=== PATIENT | male | born 1965 | race Caucasian/White ===

== ENCOUNTER 2018-12-08 12:22 | Emergency (ER) | payer OTHER ==
[~2018-12-08] VITALS: Ht 182.2 cm; Wt 108.6 kg
[2018-12-08] MEDS ORDERED: TOPROL XL (12:30)
[2018-12-08] MEDS ORDERED: ALLOPURINOL (12:32)
--- NOTE | 2018-12-08 12:49 | ED Upper Extremity ---
General Chief Complaint: Laceration Stated Complaint: FINGER LAC Nursing Triage Note: AMB TO ED REPORTS WAS USING A LOG SPLITER AND GOT L 5TH FINGER CAUGHT BETWEEN 2 PICES OF METAL . LACERATION TO FAT PAD OF FINGER. Nursing Sepsis Screen: No Definite Risk Source: patient Exam Limitations: no limitations (JIE WHITE) History of Present Illness Date Seen by Provider: Dec 08, 2018 Time Seen by Provider: 12:40 Initial Comments Patient presents today after smashing his left pinky finger in a trailer hitch, creating a 2.5 cm laceration. He states it is very painful to move and thinks he may have fractured the finger. He does not complain of any other associated symptoms and there was minimal blood loss. Location Injury Occurred: at Work Onset: just prior to arrival Severity: moderate Pain/Injury Location: left 5th finger Method of Injury: direct blow (Smashed by a trailer hitch) Modifying Factors: Improves With Cold Therapy, Improves With Immobilization; Worse With Movement Associated Symptoms: None (JIE WHITE) Allergies and Home Medications Allergies Coded Allergies: No Known Drug Allergies (Unverified , 12/08/18) Home Medications Cephalexin 500 Mg Tablet, 500 MG PO QID Prescribed by: SUNNY GRESHAM on 12/08/18 1403 Hydrocodone/Acetaminophen 1 Each Tablet, 1 TAB PO Q6H PRN for PAIN-MODERATE Prescribed by: SUNNY GRESHAM on 12/08/18 1403 Patient Home Medication List Home Medication List Reviewed: Yes (USNNY GRESHAM APRN) Review of Systems Constitutional: no symptoms reported EENTM: no symptoms reported Respiratory: no symptoms reported Cardiovascular: no symptoms reported Gastrointestinal: no symptoms reported Genitourinary: no symptoms reported Musculoskeletal: see HPI Skin: no symptoms reported Psychiatric/Neurological: No Symptoms Reported (JIE WHITE) Past Uwqtesz-Aaaefk-Gjyqbp Hx Patient Social History Alcohol Use: Denies Use Recreational Drug Use: No Smoking Status: Never a Smoker Recent Foreign Travel: No Contact w/Someone Who Travel: No Recent Infectious Disease Expo: No (JIE WHITE) Past Medical History Surgeries: No Respiratory: No Cardiac: Yes Atrial Fibrillation Neurological: No Genitourinary: No Gastrointestinal: No Musculoskeletal: No Endocrine: No HEENT: No Cancer: No Integumentary: No (WHITE,JIE PA STUDENT) Physical Exam Vital Signs Vital Signs - First Documented 12/08/18 12:23 Temp 36.1 Pulse 78 Resp 18 B/P (MAP) 151/91 (111) Pulse Ox 99 O2 Delivery Room Air (SUNNY GRESHAM APRN) Vital Signs Capillary Refill : Less Than 3 Seconds (JIE WHITE STUDENT) Height, Weight, BMI Height: '" Weight: lbs. oz. kg; 32.00 BMI Method: General Appearance: WD/WN, no apparent distress HEENT: PERRL/EOMI (JIE WHITE STUDENT) Neck: non-tender, full range of motion Gastrointestinal: normal bowel sounds, non tender Shoulder: normal inspection, non-tender Elbow/Forearm: normal inspection, non-tender Hand: Left Neurologic/Tendon: normal sensation, normal motor functions Neurologic/Psychiatric: alert, normal mood/affect, oriented x 3 Skin: normal color, warm/dry (SUNNY GRESHAM APRN) Progress/Results/Core Measures Results/Orders My Orders Orders - SUNNY GRESHAM APRN Hand, Left, 3 Views (12/08/18 12:50) Lidocaine 1% Inj 20 Ml (Xylocaine 1% Inj (12/08/18 13:00) Hand, Left, 2 Views (12/08/18 13:55) (SUNNY GRESHAM APRN) Medications Given in ED Current Medications Medications Dose Ordered Sig/Sarah Route Start Time Stop Time Status Last Admin Dose Admin Lidocaine HCl 5 ml ONCE ONCE INJ 12/08/18 13:00 12/08/18 13:01 DC 12/08/18 12:55 5 ML (SUNNY GRESHAM APRN) Vital Signs/I&O 12/08/18 12/08/18 12:23 14:25 Temp 36.1 36.1 Pulse 78 78 Resp 18 18 B/P (MAP) 151/91 (111) 151/91 (111) Pulse Ox 99 99 O2 Delivery Room Air (SUNNY GRESHAM APRN) Blood Pressure Mean: 111 POS Departure Communication (Admissions) Fingertip laceration was done. This will block was done using 5 mL of 1% lidocaine without epinephrine. Simple interrupted sutures size 4-0 and 5-0 were placed to the volar aspect of the pad of the finger. The proximal portion of the fingernail was elevated from the nail bed due to the bony fracture angulation beneath this. The fingernail was then removed from the nailbed, the nailbed laceration at the proximal middle region of the nail bed was then sutured using 1 suture size 5-0 chromic. We then used the sterile packaging from the chromic gut made out of oil as a splint for the proximal nail fold held in place with 2 sutures size 5-0 Prolene. X-rays were then done to confirm fracture reduction, (SUNNY GRESHAM APRN) Impression Primary Impression: Open fracture of finger of left hand Qualified Codes: S62.637B - Displaced fracture of distal phalanx of left little finger, initial encounter for open fracture Disposition: HOME, SELF-CARE Condition: Stable Departure-Patient Inst. Decision time for Depature: 13:59 (SUNNY GRESHAM APRN) Referrals: MEKHI ARTHRU MD,RENE TAM MD,DOE Cross MD Patient Instructions: Laceration Repair With Stitches (DC) Add. Discharge Instructions: 1. Keep this dressing on clean and dry tomorrow evening or Wednesday morning. Then you may remove. When you remove it do so very slowly and gently so as not remove the foil that is acting as a fingernail splint. You may replace this with either gauze wrap sent home with you and subsequent splint. Take antibiotics and pain medication as directed. Follow-up with orthopedics. Return to ER at some point on Wednesday to have the foil splint removed, the remainder of the stitches should be removed in about 10 days which would be around December 18 Scripts Hydrocodone/Acetaminophen ([place] 5-325 Tablet) 1 Each Tablet 1 TAB PO Q6H PRN for PAIN-MODERATE MDD 10 TABS for 7 Days, #30 TAB Prov: SUNNY GRESHAM APRN 12/08/18 Cephalexin (Cephalexin) 500 Mg Tablet 500 MG PO QID, #20 TAB 0 Refills Prov: SUNNY GRESHAM APRN 12/08/18 JIE WHITE STUDENT Dec 08, 2018 12:49 POSSUNNY GRESHAM APRN Dec 08, 2018 14:02 POS
[2018-12-08] MEDS ORDERED: LIDOCAINE 1% INJ 20 ML 20 ML VIAL INJ ONE (13:00)
--- NOTE | 2018-12-08 13:13 | Diagnostic Imaging Report ---
PATIENT HISTORY: Fifth finger injury with laceration. TECHNIQUE: Three views of the left fifth finger. COMPARISON: None. FINDINGS: There is a moderately dorsally displaced transverse fracture through the shaft of the left fifth finger distal phalanx, with associated soft tissue laceration extending underneath the nail. No radiopaque foreign bodies are seen. There is mild deformity of the distal fifth metacarpal, likely from old trauma. Alignment otherwise appears normal and joint spaces are preserved. IMPRESSION: 1. Displaced fracture of the left fifth finger distal phalangeal shaft, with associated laceration. No radiopaque foreign bodies are seen. Dictated by: Dictated on workstation # [id number]
[2018-12-08] MEDS ORDERED: HYDR-4226 PO (14:03)
[2018-12-08] MEDS ORDERED: CEPH500T PO (14:03)
[2018-12-08 14:25] VITALS: BP 151/91
--- NOTE | 2018-12-08 14:25 | Diagnostic Imaging Report ---
INDICATION: Laceration. TIME OF EXAM: 2:12 p.m. TECHNIQUE: Two views of the left hand were obtained. FINDINGS: Fracture through the distal phalanx of the fifth finger is again noted. Alignment appears to be improved since radiograph earlier the same day. No other fractures are identified. IMPRESSION: Near-anatomic alignment of the fracture of the distal phalanx, fifth finger. Dictated by: Dictated on workstation # [id number]
== END 2018-12-08 14:29 | disposition home or self-care (01) ==
LOC: EDUNIT# 12:22 → ER 12:23
DX: S62.637B Displaced fracture of distal phalanx of left little finger, initial encounter for open fracture (principal); I48.91 Unspecified atrial fibrillation; W22.8XXA Striking against or struck by other objects, initial encounter
CPT/HCPCS: 12001; 29130; 73120; 73130

== ENCOUNTER 2018-12-12 08:51 | Emergency (ER) | payer OTHER ==
[~2018-12-12] VITALS: Ht 182 cm; Wt 97.7 kg
[~2018-12-12 08:51] MED LIST: ALLOPURINOL; CEPH500T PO; HYDR-4226 PO; TOPROL XL
--- NOTE | 2018-12-12 09:25 | ED Integumentary General ---
General Chief Complaint: Skin/Wound Problems Stated Complaint: WOUND CHECK Nursing Triage Note: TO ROOM 06 FOR WOUND CHECK LEFT 5TH FINGER. Source: patient, family Exam Limitations: no limitations History of Present Illness Date Seen by Provider: Dec 12, 2018 Time Seen by Provider: 09:20 Initial Comments This is a 53-year-old white male presents for a wound recheck following a crush injury to the little finger of his dominant left hand. Injury occurred 5 days ago. The patient lost his nail and had a fractured distal phalanx. The patient had stenting applied to the nailbed and has been placed on 10 days and then bikes. His intermittent history has been unremarkable. There is been no redness, swelling, fever or chill. Allergies and Home Medications Allergies Coded Allergies: No Known Drug Allergies (Unverified , 12/08/18) Home Medications Cephalexin 500 Mg Tablet, 500 MG PO QID Prescribed by: SUNNY GRESHAM on 12/08/18 1403 Hydrocodone/Acetaminophen 1 Each Tablet, 1 TAB PO Q6H PRN for PAIN-MODERATE Prescribed by: SUNNY GRESHAM on 12/08/18 1403 Patient Home Medication List Home Medication List Reviewed: Yes Review of Systems Review of Systems Constitutional: No chills, No fever EENTM: no symptoms reported Respiratory: no symptoms reported Cardiovascular: no symptoms reported Gastrointestinal: no symptoms reported Genitourinary: no symptoms reported Musculoskeletal: see HPI, joint pain Skin: see HPI Psychiatric/Neurological: No Symptoms Reported Endocrine: No Symptoms Reported Hematologic/Lymphatic: No Symptoms Reported Past Xlmzenz-Dcgiis-Equwyw Hx Past Med/Social Hx: Reviewed Nursing Past Med/Soc Hx Patient Social History Recent Foreign Travel: No Contact w/Someone Who Travel: No Recent Infectious Disease Expo: No Past Medical History Surgeries: No Respiratory: No Cardiac: Yes Atrial Fibrillation Neurological: No Genitourinary: No Gastrointestinal: No Musculoskeletal: No Endocrine: No HEENT: No Cancer: No Integumentary: No Physical Exam Vital Signs Vital Signs - First Documented 12/12/18 08:55 Temp 35.6 Pulse 78 Resp 16 B/P (MAP) 133/82 (99) Pulse Ox 97 O2 Delivery Room Air Capillary Refill : Less Than 3 Seconds General Appearance: WD/WN, no apparent distress HEENT: normal ENT inspection Neck: normal inspection Cardiovascular: regular rate, rhythm Respiratory: no respiratory distress Back: normal inspection Extremities: normal range of motion Neurologic/Psychiatric: no motor/sensory deficits Skin: normal color, warm/dry, other (the crush injury left little finger was inspected. The wound appears to be healing well without undue inflammation.The stent was in good place and secured by sutures. The laceration volar aspect of the level finger appeared to be healing well. A fresh dressing was applied and the finger was put in Rob Lint in space to diminish discomfort as the patient used his left hand.) Progress/Results/Core Measures Results/Orders Vital Signs/I&O 12/12/18 08:55 Temp 35.6 Pulse 78 Resp 16 B/P (MAP) 133/82 (99) Pulse Ox 97 O2 Delivery Room Air Blood Pressure Mean: 99 POS Progress Progress Note : Time: 09:25 Progress Note Finger is healing well. The patient was placed in a splint in space to protect the distal phalanx. He was instructed to return on the for suture removal. He was asked to continue on the antibiotics for the full 10 days. The patient has been using a limited amount of ibuprofen Departure Impression Primary Impression: Visit for wound check Disposition: 01 HOME, SELF-CARE Condition: Improved Departure-Patient Inst. Decision time for Depature: 09:26 Referrals: [facility] (PCP/Family) Primary Care Physician Patient Instructions: Common Finger Injuries (DC) Add. Discharge Instructions: Splint for protection. Sutures out as scheduled. Continue with antibiotics until completed. Return if any problems or questions. All discharge instructions reviewed with patient and/or family. Voiced understanding. KAREN COSTA MD Dec 12, 2018 09:25 POS
[2018-12-12 09:30] VITALS: BP 133/82
== END 2018-12-12 09:34 | disposition home or self-care (01) ==
LOC: EDUNIT# 08:51 → ER 08:51
DX: S67.197D Crushing injury of left little finger, subsequent encounter (principal); I48.91 Unspecified atrial fibrillation; X58.XXXD Exposure to other specified factors, subsequent encounter
CPT/HCPCS: 29130

== ENCOUNTER 2018-12-19 11:04 | Emergency (ER) | payer SELFPAY | END 2018-12-19 11:50 | disposition left against medical advice (07) | LOC: EDUNIT# 11:04 → ER 11:05 | DX: Z48.02 Encounter for removal of sutures (principal) ==

== ENCOUNTER 2018-12-20 14:09 | Emergency (ER) | payer SELFPAY ==
[~2018-12-20] VITALS: Ht 185.4 cm; Wt 104.3 kg
[2018-12-20 14:46] VITALS: BP 115/77
== END 2018-12-20 14:46 | disposition home or self-care (01) ==
LOC: EDUNIT# 14:09 → ER 14:10
DX: S61.217D Laceration without foreign body of left little finger without damage to nail, subsequent encounter (principal); X58.XXXD Exposure to other specified factors, subsequent encounter

== ENCOUNTER 2020-06-03 09:22 | Emergency (ER) | payer SELFPAY ==
[~2020-06-03] VITALS: Ht 185 cm; Wt 104.7 kg
[2020-06-03 10:15] LABS: BUN/CREATININE RATIO 19; CALCIUM 9.6 MG/DL (8.5-10.1); CARBON DIOXIDE 24 MMOL/L (21-32); CHLORIDE 104 MMOL/L (98-107); CREATININE SERUM 1.17 MG/DL (0.60-1.30); GFR ESTIMATED > 60; GLUCOSE 118 MG/DL (70-105); POTASSIUM 4.2 MMOL/L (3.6-5.0); SODIUM 137 MMOL/L (135-145)
--- NOTE | 2020-06-03 10:26 | Diagnostic Imaging Report ---
INDICATION: Palpitations and fatigue. TIME OF EXAM: 10:23 AM. COMPARISON: No prior studies are available for comparison. FINDINGS: The heart size is normal. The pulmonary vascularity is unremarkable. The lungs are clear. No infiltrate, effusion, or pneumothorax is detected. IMPRESSION: No acute cardiopulmonary process is detected. Dictated by: Dictated on workstation # [id number]
--- NOTE | 2020-06-03 10:39 | ED Cardiac General ---
History of Present Illness General Chief Complaint: Cardiac/General Problems Stated Complaint: AFIB Nursing Triage Note: PT PRESENTS TO ED WITH COMPLAINTS OF PALPITATIONS SINCE WEDNESDAY AND GENERALIZED FATIGUE. PT HAS HX OF AFIB. PT DENIES CP. (AZEB BETANCUR MED STUDENT) History of Present Illness Date Seen by Provider: Jun 03, 2020 Time Seen by Provider: 10:33 Initial Comments Patient is a 54-year-old male who presents to the emergency department with the chief complaint of palpitations. Patient states that he has had these episodes of his "heart skipping", "a hard thump against his chest", or "humming" for "all his life." He states that they used to occur once every few years, and have become more frequent every day in the last 4 months. He also reports increased tiredness and having to sleep during the day the last few months. He denies chest pain,, presyncope, or syncope. He does report having increased shortness of breath with exertion at baseline. He reports smoking a pack per day. He has an appointment with cardiology on July 12. He states he feels "runs" of these episodes the last couple nights, and has concerns about the increased frequency of these episodes. He has been taking Toprol 50mg regularly for this, but recently feels like the medication is as effective as it used to be. He also states that he thinks the medicine has been negatively affecting his sexual function. He saw his PCP 2 weeks ago for "sores" in his mouth, which he has been treating with antibiotics. He also reports feeling extra pressure from work, the pandemic, and other stressors. He reports having recieved his first COVID vaccination dose on May 02. Denies fever, chills, recent illness, GI or symptoms. All other review of systems reviewed and are negative except stated above. Timing/Duration: intermittent Severity: mild Location: central Activities at Onset: none Associated Systoms: Denies Symptoms (AZEB BETANCUR MED STUDENT) Allergies and Home Medications Allergies Coded Allergies: Penicillins (Verified Allergy, Unknown, 06/03/20) Home Medications Cephalexin 500 Mg Tablet, 500 MG PO QID Prescribed by: SUNNY GRESHAM on 12/08/18 140 Hydrocodone/Acetaminophen 1 Each Tablet, 1 TAB PO Q6H PRN for PAIN-MODERATE Prescribed by: SUNNY GRESHAM on 12/08/181402 Patient Home Medication List Home Medication List Reviewed: Yes (JONAH JEFFRIES MD) Review of Systems Review of Systems Constitutional: see HPI; No chills, No fever EENTM: Other ("sores" inside mouth) Respiratory: See HPI, SOA With Exertion; Denies SOA at Rest Cardiovascular: See HPI; Denies Chest Pain, Denies Irregular Heart Rate, Denies Lightheadedness; Palpitations; Denies Syncope Gastrointestinal: No Symptoms Reported Genitourinary: No Symptoms Reported Musculoskeletal: no symptoms reported Skin: no symptoms reported (AZEB BETANCUR MED STUDENT) All Other Systems Reviewed Negative Unless Noted: Yes (AZEB BETANCUR STUDENT) Past Lgvbrax-Deypmk-Motwra Hx Patient Social History Alcohol Use: Denies Use Smoking Status: Current Everyday Smoker Recent Infectious Disease Expo: No (AZEB BETANCUR STUDENT) Past Medical History Surgeries: No Respiratory: No Cardiac: Yes Atrial Fibrillation Neurological: No Genitourinary: No Gastrointestinal: No Musculoskeletal: No Endocrine: No HEENT: No Cancer: No Integumentary: No (AZEB BETANCUR STUDENT) Physical Exam Vital Signs Vital Signs - First Documented 06/03/20 09:26 Temp 36.1 Pulse 88 Resp 18 B/P (MAP) 155/103 (120) Pulse Ox 99 (JONAH JEFFRIES MD) Vital Signs Capillary Refill : Less Than 3 Seconds (AZEB BETANCUR STUDENT) Height, Weight, BMI Height: '" Weight: lbs. oz. kg; 30.00 BMI Method:Actual General Appearance: No Apparent Distress, WD/WN HEENT: Pharynx Normal, Other (no swelling, erythema or ulcers inside buccal region present. fair dentition. ) Neck: Normal Inspection, Non Tender, Supple; No Thyromegaly Respiratory: Chest Non Tender, Lungs Clear, Normal Breath Sounds, No Accessory Muscle Use, No Respiratory Distress Cardiovascular: Regular Rate, Rhythm, No Gallop, No Murmur, Normal Peripheral Pulses, Extra Beats Gastrointestinal: Normal Bowel Sounds, No Organomegaly, No Pulsatile Mass, Non Tender, Soft Extremity: Normal Capillary Refill, Normal Inspection, Normal Range of Motion, Non Tender, No Pedal Edema Neurologic/Psychiatric: Alert, Oriented x3, No Motor/Sensory Deficits, Normal Mood/Affect Skin: Normal Color, Warm/Dry Lymphatic: No Adenopathy (AZEB BETANCUR MED STUDENT) Progress/Results/Core Measures Results/Orders Lab Results Laboratory Tests Test 06/03/20 09:36 Range/Units Sodium Level 137 135-145 MMOL/L Potassium Level 4.2 3.6-5.0 MMOL/L Chloride Level 104 98-107 MMOL/L Carbon Dioxide Level 24 21-32 MMOL/L Anion Gap 9 5-14 MMOL/L Blood Urea Nitrogen 22 H 7-18 MG/DL Creatinine 1.17 0.60-1.30 MG/DL Estimat Glomerular Filtration Rate > 60 BUN/Creatinine Ratio 19 Glucose Level 118 H 70-105 MG/DL Calcium Level 9.6 8.5-10.1 MG/DL Thyroid Stimulating Hormone (TSH) 0.53 0.35-4.94 UIU/ML Free Thyroxine 1.00 0.70-1.48 NG/DL (JONAH JEFFRIES MD) My Orders Orders - JONAH JEFFRIES MD Ekg Tracing (06/03/20 10:01) Basic Metabolic Panel (06/03/20 10:01) Chest 1 View, Ap/Pa Only (06/03/20 10:01) Thyroid Stimulating Hormone (06/03/20 10:18) Triiodothryonine T3 Free (06/03/20 10:18) Free T4 (Free Thyroxine) (06/03/20 10:18) (JONAH JEFFRIES MD) Vital Signs/I&O 06/03/20 09:26 Temp 36.1 Pulse 88 Resp 18 B/P (MAP) 155/103 (120) Pulse Ox 99 (JONAH JEFFRIES MD) Blood Pressure Mean: 120 Progress Progress Note : Time: 11:39 Progress Note Long discussion with the patient regarding plan of care. I strongly recommended that he quit smoking. I believe that he needs a sleep study to rule out obstructive sleep apnea and possibly a CPAP at night. Patient states that he does not sleep well at night which obviously in turn can increase his risk for excessive daytime sleepiness and palpitations and anxiety. The patient articulates some concern over his beta-blockers and taking an extra 1 as he is having some problems with sexual dysfunction that he believes are related to the medication. I recommended that he talk with his provider about a different antihypertensive medication. Hopefully he can do this at [facility]. Today he has no clinical or objective findings to warrant further investigation from the emergency department. No concerns for hospital admission at this time. I have gone over these recommendations with the patient and his . All questions are sought and answered. Patient is stable for discharge. (JONAH JEFFRIES MD) Initial ECG Impression Date: Jun 03, 2020 Initial ECG Impression Time: 09:30 Initial ECG Rate: 82 Initial ECG Rhythm: Normal Sinus Initial ECG Intervals: Normal Initial ECG Impression: Normal (JONAH JEFFRIES MD) Diagnostic Imaging Diagonstic Imaging: Xray Plain Films/CT/US/NM/MRI: chest Comments [facility]. [place], [place] NAME: KAREN WATERMAN [facility] REC#: [id number] PT STATUS: REG ER : 1965 PHYSICIAN: JONAH JEFFRIES MD ADMIT DATE: 06/03/20/ER Draft Date of Exam:06/03/20 CHEST 1 VIEW, AP/PA ONLY INDICATION: Palpitations and fatigue. TIME OF EXAM: 10:23 AM. COMPARISON: No prior studies are available for comparison. FINDINGS: The heart size is normal. The pulmonary vascularity is unremarkable. The lungs are clear. No infiltrate, effusion, or pneumothorax is detected. IMPRESSION: No acute cardiopulmonary process is detected. Dictated on workstation # [id number] Dict: 06/03/20 1024 Trans: 06/03/20 1025 [id number] Interpreted by: CLIFTON MAC MD Electronically signed by: (JONAH JEFFRIES MD) Departure Impression Primary Impression: Palpitations Disposition: 01 HOME, SELF-CARE Condition: Stable Departure-Patient Inst. Decision time for Depature: 11:41 (JONAH JEFFRIES MD) Referrals: [facility] (PCP) Primary Care Physician BRIAN NOLASCO (Family) Primary Care Physician Patient Instructions: Palpitations Add. Discharge Instructions: Please drink plenty of fluids to stay well-hydrated. If you are experiencing runs of palpitations or discomfort in the evening time you can take an extra one of your Toprol's. Please follow-up with your primary care physician through [facility]. You need to discuss with them possibly obtaining a sleep study to evaluate your excessive daytime sleepiness. Also I would strongly recommend that you quit smoking as this can cut down on the amount of palpitations that you are feeling. Return to the emergency room if you have worsening palpitations, chest pain, shortness of breath fever or any other emergent concerning symptoms. I have seen and evaluated the patient. I agree with the medical students documentation and assessment. I have performed a history and physical exam. I performed the medical decision making on this patient. (JONAH JEFFRIES MD) Copy Copies To 1: YANELI MALIN KAREN MED STUDENT Jun 03, 2020 10:39 JONAH JEFFRIES MD Jun 03, 2020 10:56
[2020-06-03 11:50] VITALS: BP 138/91
== END 2020-06-03 11:49 | disposition home or self-care (01) ==
LOC: EDUNIT# 09:22 → ER 09:24
DX: R00.2 Palpitations (principal); F17.200 Nicotine dependence, unspecified, uncomplicated; Z88.0 Allergy status to penicillin
CPT/HCPCS: 36415; 71045; 80048; 84439; 84443; 84481; 93005

== ENCOUNTER 2023-01-02 02:06 | Observation (INO) | payer SELFPAY ==
[~2023-01-02] VITALS: Ht 182.9 cm; Wt 107.7 kg
--- NOTE | 2023-01-02 02:28 | ED General ---
General Chief Complaint: Chest Pain Stated Complaint: CHEST DISCOMFORT Source of Information: Patient Exam Limitations: No Limitations History of Present Illness Date Seen by Provider: Jan 02, 2023 Time Seen by Provider: 02:14 Initial Comments 67-year-old male presents the emergency department today for chest discomfort which he believes is related to indigestion. He states it is a burning sensation in his anterior chest and definitely worse when he lays flat. He has some chronic left shoulder pain which is unchanged with his current symptoms. He denies any shortness of breath. No cough or fevers. He has no known cardiac history. He took 7 Tums prior to arrival which did not really help him. All other systems reviewed and negative except documented per HPI. Voice recognition software was used to help create this chart Allergies and Home Medications Allergies Coded Allergies: Penicillins (Verified Allergy, Unknown, 06/03/20) Patient Home Medication List Home Medication List Reviewed: Yes Cephalexin (Cephalexin) 500 Mg Tablet, 500 MG PO QID Prescribed by: SUNNY GRESHAM on 12/08/18 1403 Hydrocodone/Acetaminophen (Hydrocodone/Acetaminophen 5 MG/325 MG TAB) 1 Each Tablet, 1 TAB PO Q6H PRN for PAIN-MODERATE Prescribed by: SUNNY GRESHAM on 12/08/18 1403 [Allopurionol] , (Reported) Entered as Reported by: CLARISSA GARCIA on 12/08/18 1232 [Toprol Xl] , (Reported) Entered as Reported by: CLARISSA GARCIA on 12/08/18 1230 Review of Systems Review of Systems Constitutional: see HPI Past Oicxphy-Omnnui-Ybccbg Hx Patient Social History Tobacco Use?: No Use of E-Cig and/or Vaping dev: No Substance use?: No Alcohol Use?: No Past Medical History Surgeries: No Respiratory: No Cardiac: Yes Atrial Fibrillation Neurological: No Genitourinary: No Gastrointestinal: No Musculoskeletal: No Endocrine: No HEENT: No Cancer: No Integumentary: No Physical Exam Vital Signs Vital Signs - First Documented 01/02/23 02:45 Temp 36.6 Pulse 80 Resp 16 B/P (MAP) 158/90 (112) Pulse Ox 98 O2 Delivery Room Air Capillary Refill : Height, Weight, BMI Height: '" Weight: lbs. oz. kg; 30.00 BMI Method:Actual General Appearance: No Apparent Distress, WD/WN Eyes: Bilateral Eye Normal Inspection, Bilateral Eye PERRL, Bilateral Eye EOMI HEENT: Normal ENT Inspection, Pharynx Normal Neck: Full Range of Motion, Non Tender, Supple Respiratory: Chest Non Tender, Lungs Clear, Normal Breath Sounds, No Accessory Muscle Use Cardiovascular: Regular Rate, Rhythm, No Murmur Gastrointestinal: Normal Bowel Sounds, No Organomegaly, Non Tender, Soft Extremity: Normal Capillary Refill, Normal Inspection, Normal Range of Motion, Non Tender, No Calf Tenderness Neurologic/Psychiatric: Alert, Oriented x3, No Motor/Sensory Deficits Skin: Normal Color, Warm/Dry Progress/Results/Core Measures Suspected Sepsis SIRS Temperature: Pulse: Respiratory Rate: Laboratory Tests 01/02/23 02:40: White Blood Count 11.0 Blood Pressure / Mean: Laboratory Tests 01/02/23 02:40: Creatinine 1.07, Platelet Count 252, Total Bilirubin 0.4 Results/Orders Lab Results Laboratory Tests Test 01/02/23 02:40 Range/Units White Blood Count 11.0 4.3-11.0 10^3/uL Red Blood Count 5.15 4.30-5.52 10^6/uL Hemoglobin 15.4 13.3-17.7 g/dL Hematocrit 46 40-54 % Mean Corpuscular Volume 90 80-99 fL Mean Corpuscular Hemoglobin 30 25-34 pg Mean Corpuscular Hemoglobin Concent 33 32-36 g/dL Red Cell Distribution Width 13.5 10.0-14.5 % Platelet Count 252 130-400 10^3/uL Mean Platelet Volume 9.2 9.0-12.2 fL Immature Granulocyte % (Auto) 0 % Neutrophils (%) (Auto) 72 42-75 % Lymphocytes (%) (Auto) 21 12-44 % Monocytes (%) (Auto) 6 0-12 % Eosinophils (%) (Auto) 1 0-10 % Basophils (%) (Auto) 0 0-10 % Neutrophils # (Auto) 7.9 H 1.8-7.8 10^3/uL Lymphocytes # (Auto) 2.3 1.0-4.0 10^3/uL Monocytes # (Auto) 0.7 0.0-1.0 10^3/uL Eosinophils # (Auto) 0.1 0.0-0.3 10^3/uL Basophils # (Auto) 0.0 0.0-0.1 10^3/uL Immature Granulocyte # (Auto) 0.0 0.0-0.1 10^3/uL Sodium Level 137 135-145 MMOL/L Potassium Level 4.3 3.6-5.0 MMOL/L Chloride Level 104 98-107 MMOL/L Carbon Dioxide Level 22 21-32 MMOL/L Anion Gap 11 5-14 MMOL/L Blood Urea Nitrogen 24 H 7-18 MG/DL Creatinine 1.07 0.60-1.30 MG/DL Estimat Glomerular Filtration Rate 82 BUN/Creatinine Ratio 22 Glucose Level 111 H 70-105 MG/DL Calcium Level 10.4 H 8.5-10.1 MG/DL Corrected Calcium 10.2 H 8.5-10.1 MG/DL Magnesium Level 2.2 1.6-2.4 MG/DL Total Bilirubin 0.4 0.1-1.0 MG/DL Aspartate Amino Transf (AST/SGOT) 15 5-34 U/L Alanine Aminotransferase (ALT/SGPT) 21 0-55 U/L Alkaline Phosphatase 78 40-136 U/L Myoglobin 19.1 10.0-92.0 NG/ML Troponin I < 0.028 <0.028 NG/ML Total Protein 7.4 6.4-8.2 GM/DL Albumin 4.2 3.2-4.5 GM/DL My Orders Orders - ALEXIS FRIEDMAN DO Cbc And Automated Diff (01/02/23 02:23) Magnesium (01/02/23 02:23) Chest 1 View, Ap/Pa Only (01/02/23 02:23) Ekg Tracing (01/02/23 02:23) Comprehensive Metabolic Panel (01/02/23 02:23) Myoglobin Serum (01/02/23 02:23) Monitor-Rhythm Ecg Trace Only (01/02/23 02:23) Ed Iv/Invasive Line Start (01/02/23 02:23) Troponin I [place] (01/02/23 02:23) Aspirin Chewable Tablet (Aspirin Chewabl (01/02/23 02:30) Sucralfate Tablet (Sucralfate Tablet) (01/02/23 02:30) Antacid Suspension (Antacid Suspension (01/02/23 02:30) Lidocaine 2% Viscous 15 Ml (Xylocaine Vi (01/02/23 02:30) Ed Admission (Communication) (01/02/23 03:34) Medications Given in ED Current Medications Medications Dose Ordered Sig/Sarah Route Start Time Stop Time Status Last Admin Dose Admin Al Hydrox/Mg Hydrox/Simethicone 30 ml ONCE ONCE PO 01/02/23 02:30 01/02/23 02:31 DC 01/02/23 02:34 30 ML Aspirin 324 mg ONCE ONCE PO 01/02/23 02:30 01/02/23 02:31 DC 01/02/23 02:33 324 MG Lidocaine HCl 5 ml ONCE ONCE PO 01/02/23 02:30 01/02/23 02:31 DC 01/02/23 02:34 5 ML Sucralfate 1 gm ONCE ONCE PO 01/02/23 02:30 01/02/23 02:31 DC 01/02/23 02:34 1 GM Vital Signs/I&O 01/02/23 01/02/23 02:45 02:45 Temp 36.6 Pulse 80 Resp 16 B/P (MAP) 158/90 (112) Pulse Ox 98 O2 Delivery Room Air Room Air Capillary Refill : ECG Comment Sinus rhythm with a rate of 74 bpm. Normal intervals. Normal axis. Incomplete right bundle branch block. No ST or T wave abnormalities. No ectopy. No STEMI. Departure Communication (Admissions) Patient is hemodynamically stable. EKG is nonischemic and troponin is negative. Remainder of lab work is unremarkable. Chest x-ray is negative for any acute cardiopulmonary abnormality on my independent interpretation. Initially he was quite certain his symptoms were from indigestion. Given GI cocktail which did not seem to help him whatsoever. I offered him nitroglycerin and he declined adamantly stating he had a severe headache with this after he took it several years ago and does not want this. He declines any narcotic or addictive type pain medication as well. He has had aspirin early on in his emergency room course. Given his ongoing pain I recommend admission to the hospital for stress testing. He is agreeable to this. I spoke with Dr. Quintanilla who accepts admission. I called Dr. Rodriguez and left a message about the consult. Impression Primary Impression: Chest pain Qualified Codes: R07.9 - Chest pain, unspecified Disposition: ADMITTED INPATIENT Condition: Stable Departure-Patient Inst. Referrals: [facility] GRAPEVINE MOHAMUD (PCP) Primary Care Physician BRIAN NOLASCO (Family) Primary Care Physician ALEXIS FRIEDMAN DO Jan 02, 2023 02:28
[2023-01-02] MEDS ORDERED: LIDOCAINE 2% VISCOUS 15 ML UDC PO ONE (02:30)
[2023-01-02] MEDS ORDERED: ASPIRIN 81 MG CHEWABLE TABLET PO ONE (02:30)
[2023-01-02] MEDS ORDERED: ANTACID SUSPENSION 30 ML UDC PO ONE (02:30)
[2023-01-02] MEDS ORDERED: SUCRALFATE 1 GM TABLET PO ONE (02:30)
[2023-01-02 02:51] LABS: BASOPHILS % (AUTO) 0 % (0-10); EOSINOPHILS # (AUTO) 0.1 10^3/uL (0.0-0.3); EOSINOPHILS % (AUTO) 1 % (0-10); HEMATOCRIT 46 % (40-54); HEMOGLOBIN 15.4 g/dL (13.3-17.7); LYMPHOCYTES # (AUTO) 2.3 10^3/uL (1.0-4.0); LYMPHOCYTES % (AUTO) 21 % (12-44); MEAN CORPUSCULAR HEMOGLOBIN 30 pg (25-34); MEAN CORPUSCULAR HGB CONC 33 g/dL (32-36); MEAN CORPUSCULAR VOLUME 90 fL (80-99); MEAN PLATELET VOLUME 9.2 fL (9.0-12.2); MONOCYTES # (AUTO) 0.7 10^3/uL (0.0-1.0); MONOCYTES % (AUTO) 6 % (0-12); NEUTROPHILS # (AUTO) 7.9 10^3/uL (1.8-7.8); NEUTROPHILS % (AUTO) 72 % (42-75); PLATELET COUNT 252 10^3/uL (130-400)
[2023-01-02 03:03] LABS: ALBUMIN 4.2 GM/DL (3.2-4.5)
[2023-01-02 03:04] LABS: CHLORIDE 104 MMOL/L (98-107); POTASSIUM 4.3 MMOL/L (3.6-5.0); SODIUM 137 MMOL/L (135-145)
[2023-01-02 03:05] LABS: CALCIUM 10.4 MG/DL (8.5-10.1)
[2023-01-02 03:06] LABS: GLUCOSE 111 MG/DL (70-105); TOTAL PROTEIN 7.4 GM/DL (6.4-8.2)
[2023-01-02 03:07] LABS: CARBON DIOXIDE 22 MMOL/L (21-32)
[2023-01-02 03:08] LABS: BILIRUBIN,TOTAL 0.4 MG/DL (0.1-1.0)
[2023-01-02 03:09] LABS: ALKALINE PHOSPHATASE 78 U/L (40-136)
[2023-01-02 03:10] LABS: CREATININE SERUM 1.07 MG/DL (0.60-1.30); GFR ESTIMATED 82
[2023-01-02 03:11] LABS: BUN/CREATININE RATIO 22
[2023-01-02 03:12] LABS: ALANINE AMINOTRANSFERASE 21 U/L (0-55)
[2023-01-02 03:14] LABS: MAGNESIUM 2.2 MG/DL (1.6-2.4)
[2023-01-02] MEDS ORDERED: CATHETER FLUSH 10 ML SYR IVP PRN (04:30)
[2023-01-02 04:43] VITALS: BP 14/151
[2023-01-02] MEDS ORDERED: ACETAMINOPHEN 500 MG TABLET PO PRN (04:45)
[2023-01-02] MEDS ORDERED: RT-ALBUTEROL SULF 2.5 MG/3 ML PRE-MIX VIAL INH PRN (05:00)
[2023-01-02] MEDS ORDERED: CATHETER FLUSH 10 ML SYR IVP SCH (06:00)
--- NOTE | 2023-01-02 06:07 | Diagnostic Imaging Report ---
INDICATION: Chest pain. COMPARISON: 06/03/2020. DISCUSSION: Single portable upright view of the chest was obtained. Low lung volumes with suspected bibasilar atelectasis. No other consolidation or air bronchograms. No pleural fluid or pneumothorax. Stable heart size. No osseous abnormality. IMPRESSION: 1. No acute cardiopulmonary process. Dictated by: Dictated on workstation # [id number]
--- NOTE | 2023-01-02 06:24 | History & Physical-Hospitalist ---
History of Present Illness HPI/Chief Complaint Chief complaint: Chest pain with negative troponin HPI: This is a 77-year-old male smoker and hypertensive who presented to the ER with atypical chest pain. All troponins were negative. He was admitted for restratification and cardiology consultation. Echocardiogram performed and reviewed. Pericarditis was confirmed by cardiology. He will go home. Source: patient Exam Limitations: no limitations Date Seen 01/02/23 Time Seen by a Provider: 11:00 Attending Physician Erasmo Cabrera - [facility] PCP Admitting Physician: Andressa Quintanilla DO Attending Physician: Andressa Quintanilla DO Referring Physician Date of Admission Jan 02, 2023 at 04:03 Home Medications & Allergies Home Medications Reviewed patient Home Medication Reconciliation performed by pharmacy medication reconciliations ophthalmology surgical technician and/or nursing. Patients Allergies have been reviewed. Allergies Allergies Coded Allergies Penicillins (Verified Allergy, Unknown, 06/03/20) Past Yyuhknm-Osfoko-Svrmjb Hx Patient Social History Marrital Status: Employed/Student: employed Tobacco Use?: Yes Tobacco type used: Cigarettes Smoking Status: Current Everyday Smoker Use of E-Cig and/or Vaping dev: No Substance use?: No Alcohol Use?: No Pt feels they are or have been: No Immunizations Up To Date First/Initial COVID19 Vaccinat: 05/02/20 Second COVID19 Vaccination Primo: 05/02/20 Tetanus Booster (TDap): Less Than 5 Years Hepatitis A: No Hepatitis B: No Current Status Advance Directives: No Communicates: Verbally Primary Language: Greenlandic Preferred Spoken Language: Greenlandic Is interpretation needed?: No Implanted or Applied Medical D: None Past Medical History Atrial Fibrillation, Hypertension Review of Systems Constitutional: see HPI Cardiovascular: chest pain Physical Exam Physical Exam Vital Signs Vital Signs - First Documented 01/02/23 01/02/23 02:45 04:43 Temp 36.6 Pulse 80 Resp 16 B/P (MAP) 158/90 (112) Pulse Ox 98 O2 Delivery Room Air FiO2 21 Capillary Refill : Less Than 3 Seconds Height, Weight, BMI Height: '" Weight: lbs. oz. kg; 32.19 BMI Method:Actual General Appearance: No Apparent Distress Eyes: Right Eye Normal Inspection, Right Eye PERRL HEENT: PERRL/EOMI, TMs Normal, Normal ENT Inspection, Pharynx Normal, Moist Mucous Membranes Neck: Full Range of Motion, Normal Inspection, Non Tender Respiratory: Chest Non Tender, Lungs Clear, Normal Breath Sounds, No Accessory Muscle Use, No Respiratory Distress Cardiovascular: Regular Rate, Rhythm, No Edema, No Gallop, No JVD, No Murmur, Normal Peripheral Pulses Gastrointestinal: Normal Bowel Sounds, No Organomegaly, No Pulsatile Mass, Non Tender, Soft Back: Normal Inspection, No CVA Tenderness, No Vertebral Tenderness Extremity: Normal Capillary Refill, Normal Inspection, Normal Range of Motion, Non Tender, No Calf Tenderness, No Pedal Edema Neurologic/Psychiatric: Alert, Oriented x3, No Motor/Sensory Deficits, Normal Mood/Affect Skin: Normal Color, Warm/Dry Lymphatic: No Adenopathy Results Results/Procedures Labs Laboratory Tests 01/02/23 02:40 Patient resulted labs reviewed. Assessment/Plan Admission Diagnosis Assessment: Chest pain from pericarditis Smoker Hypertension Plan: Discharge home Admission Status: Observation ANDRESSA QUINTANILLA DO Jan 02, 2023 06:24
[2023-01-02] MEDS ORDERED: oxyCODONE IMMEDIATE RELEASE 5 MG TABLET PO PRN (06:30)
[2023-01-02] MEDS ORDERED: ACETAMINOPHEN 325 MG TABLET PO PRN (06:30)
[2023-01-02] MEDS ORDERED: ONDANSETRON 4 MG ORAL DISSOLVE TABLET PO PRN (06:30)
[2023-01-02] MEDS ORDERED: morphine INJ 4 MG/ML 1 ML (VIAL/SYRINGE) IV PRN (06:30)
[2023-01-02] MEDS ORDERED: ONDANSETRON INJECTION 4 MG/2 ML (SDV) IV PRN (06:30)
[2023-01-02] MEDS ORDERED: MELATONIN 3 MG TABLET PO PRN (06:30)
[2023-01-02] MEDS ORDERED: MILK OF MAGNESIA 400 MG/5 ML 30 ML UDC PO PRN (06:30)
[2023-01-02] MEDS ORDERED: LACTULOSE SYRUP 10GM/15ML 30ML UDC PO PRN (06:30)
[2023-01-02] MEDS ORDERED: BISACODYL 10 MG SUPPOSITORY PR PRN (06:30)
[2023-01-02] MEDS ORDERED: CALCIUM CARBONATE 500 MG CHEW TABLET PO PRN (06:30)
[2023-01-02] MEDS ORDERED: ANTACID SUSPENSION 30 ML UDC PO PRN (06:30)
[2023-01-02] MEDS ORDERED: diphenhydrAMINE 25 MG TABLET PO PRN (06:30)
[2023-01-02] MEDS ORDERED: diphenhydrAMINE INJ 50 MG/ML VIAL IVP PRN (06:30)
[2023-01-02 06:57] LABS: TRIGLYCERIDES 281 MG/DL (<150); VLDL CHOLESTEROL 56 MG/DL (5-40)
[2023-01-02 07:02] LABS: CHOLESTEROL 169 MG/DL (< 200)
[2023-01-02 07:03] LABS: HDL CHOLESTEROL 30 MG/DL (40-60)
--- NOTE | 2023-01-02 08:11 | Tele-ICU Progress Note ---
Progress Note 57 y/o male admitted through the ED for complaints of chest pain which the patient felt was due to indigestion and GERD. EKG showed no ischemia nd troponin was normal. GI cocktail given with willie relief Refused NTG and morphine Given ASA and admitted due to ongoing pain PE: appears comfortable in bed All vitals signs are stable Awaiting cardiology evaluation for possible stress test IMP: atypical chest pain PLAN: awaiting cardiology consult Time spent in review 15 minutes I am monitoring this patient remotely and this evaluation wa sbased upon video evaluation in conjunction with review of the medical records and discussion with [facility] staff Focused Exam Height, Weight, BMI Height: '" Weight: lbs. oz. kg; 32.19 BMI Method:Actual Labs Laboratory Tests 01/02/23 02:40 Results Results/Procedures Lab Laboratory Tests 01/02/23 02:40 Results Results/Procedures Labs Laboratory Tests 01/02/23 02:40 Patient resulted labs reviewed. Results Labs Labs Laboratory Tests 01/02/23 02:40: White Blood Count 11.0, Red Blood Count 5.15, Hemoglobin 15.4, Hematocrit 46, Mean Corpuscular Volume 90, Mean Corpuscular Hemoglobin 30, Mean Corpuscular Hemoglobin Concent 33, Red Cell Distribution Width 13.5, Platelet Count 252, Mean Platelet Volume 9.2, Immature Granulocyte % (Auto) 0, Neutrophils (%) (Auto) 72, Lymphocytes (%) (Auto) 21, Monocytes (%) (Auto) 6, Eosinophils (%) (Auto) 1, Basophils (%) (Auto) 0, Neutrophils # (Auto) 7.9H, Lymphocytes # (Auto) 2.3, Monocytes # (Auto) 0.7, Eosinophils # (Auto) 0.1, Basophils # (Auto) 0.0, Immature Granulocyte # (Auto) 0.0, Sodium Level 137, Potassium Level 4.3, Chloride Level 104, Carbon Dioxide Level 22, Anion Gap 11, Blood Urea Nitrogen 24H, Creatinine 1.07, Estimat Glomerular Filtration Rate 82, BUN/Creatinine Ratio 22, Glucose Level 111H, Calcium Level 10.4H, Corrected Calcium 10.2H, Magnesium Level 2.2, Total Bilirubin 0.4, Aspartate Amino Transf (AST/SGOT) 15, Alanine Aminotransferase (ALT/SGPT) 21, Alkaline Phosphatase 78, Myoglobin 19.1, Troponin I < 0.028, Total Protein 7.4, Albumin 4.2 01/02/23 06:37: Troponin I < 0.028, Triglycerides Level 281H, Cholesterol Level 169, LDL Cholesterol Direct 97, VLDL Cholesterol 56H, HDL Cholesterol 30L DEVON CAPPS MD Jan 02, 2023 08:11
[2023-01-02] MEDS ORDERED: METO-352 PO (08:13)
[2023-01-02] MEDS ORDERED: ASPI-999 PO (08:17)
[2023-01-02] MEDS ORDERED: ENOXAPARIN 40 MG/0.4 ML SYRINGE SC SCH (09:00)
[2023-01-02] MEDS ORDERED: SENNOSIDES 8.6 MG TABLET PO SCH (09:00)
[2023-01-02] MEDS ORDERED: ASPIRIN enteric coated 81MG TABLET PO SCH (09:00)
[2023-01-02] MEDS ORDERED: DOCUSATE SODIUM 100 MG CAPSULE PO SCH (09:00)
[2023-01-02] MEDS ORDERED: COLCHICINE 0.6 MG TABLET PO ONE (11:00)
[2023-01-02] MEDS ORDERED: IBUPROFEN 200 MG TABLET PO PRN (11:00)
[2023-01-02] MEDS ORDERED: COLC0.6C3 PO (11:03)
[2023-01-02] MEDS ORDERED: PANT40TA2 PO (11:03)
[2023-01-02] MEDS ORDERED: IBUP-1773 PO (11:03)
--- NOTE | 2023-01-02 11:08 | Discharge Summary ---
Discharge Summary Hospital Course Was the Problem List Reviewed?: Yes Problems/Dx: (1) Pericarditis Status: Acute Qualifiers: Qualified Codes: I30.0 - Acute nonspecific idiopathic pericarditis Hospital Course Date of Admission: Jan 02, 2023 at 04:03 Admission Diagnosis : Family Physician/Provider: Gopal Turner Date of Discharge: 01/02/23 Discharge Diagnosis: [ ] Hospital Course: See HPI and plan on H&P Labs and Pending Lab Test: Laboratory Tests 01/02/23 02:40: White Blood Count 11.0, Red Blood Count 5.15, Hemoglobin 15.4, Hematocrit 46, Mean Corpuscular Volume 90, Mean Corpuscular Hemoglobin 30, Mean Corpuscular Hemoglobin Concent 33, Red Cell Distribution Width 13.5, Platelet Count 252, Mean Platelet Volume 9.2, Immature Granulocyte % (Auto) 0, Neutrophils (%) (Auto) 72, Lymphocytes (%) (Auto) 21, Monocytes (%) (Auto) 6, Eosinophils (%) (Auto) 1, Basophils (%) (Auto) 0, Neutrophils # (Auto) 7.9H, Lymphocytes # (Auto) 2.3, Monocytes # (Auto) 0.7, Eosinophils # (Auto) 0.1, Basophils # (Auto) 0.0, Immature Granulocyte # (Auto) 0.0, Sodium Level 137, Potassium Level 4.3, Chloride Level 104, Carbon Dioxide Level 22, Anion Gap 11, Blood Urea Nitrogen 24H, Creatinine 1.07, Estimat Glomerular Filtration Rate 82, BUN/Creatinine Ratio 22, Glucose Level 111H, Calcium Level 10.4H, Corrected Calcium 10.2H, Magnesium Level 2.2, Total Bilirubin 0.4, Aspartate Amino Transf (AST/SGOT) 15, Alanine Aminotransferase (ALT/SGPT) 21, Alkaline Phosphatase 78, Myoglobin 19.1, Troponin I < 0.028, Total Protein 7.4, Albumin 4.2 01/02/23 06:37: Troponin I < 0.028, Triglycerides Level 281H, Cholesterol Level 169, LDL Cholesterol Direct 97, VLDL Cholesterol 56H, HDL Cholesterol 30L Home Meds Active Reported Aspirin 81 Mg Tab.chew 81 Mg PO DAILY Toprol Xl (Metoprolol Succinate) 50 Mg Tab.er.24h 50 Mg PO BID Assessment/Pt Instructions PCP in 1 week Discharge Planning: <30 minutes discharge planning Discharge Instructions Discharge Diet: No Restrictions Activity as Tolerated: Yes Discharge Physical Examination Vital Signs Vital Signs Date Time Temp Pulse Resp B/P (MAP) Pulse Ox O2 Delivery O2 Flow Rate FiO2 01/02/23 10:00 79 19 138/85 (100) 95 Room Air 01/02/23 08:17 36.4 01/02/23 04:43 21 General Appearance: No Apparent Distress, WD/WN Allergies: Coded Allergies: Penicillins (Verified Allergy, Unknown, 06/03/20) Discharge Summary Date of Admission Jan 02, 2023 at 04:03 Date of Discharge Discharge Date: Jan 02, 2023 MANUEL GARCIA DO Jan 02, 2023 11:08
[2023-01-02 11:23] VITALS: BP 129/82
--- NOTE | 2023-01-02 12:28 | Consultation-Cardiology ---
HPI-Cardiology Cardiology Consultation: Date of Consultation 01/02/23 Date of Admission Attending Physician Erasmo Cabrera - [facility] Admitting Physician Admitting Physician: Andressa Garcia DO Attending Physician: Andressa Garcia DO Consulting Physician ALEJANDRO ESQUIVEL MD HPI: Time Seen by a Provider: 09:00 Chief Complaint: Chest Pain 57 yo male presenting with chest discomfort/pain admitted for evaluation and to rule out ACS. Troponins negative, stable ECG , stable hemodynamically over past 24 hrs.Patient refers sick contacts recently and he also last week thought might be coming down with a "cold". He mentions chest pain is worse with deep inspiration and laying flat and significantly improved with leaning forward and avoiding deep breaths. He is in the process of trying to obtain medical insurance . He was diagnosed with pericarditis and will be discharged and monitored outpatient Review of Systems-Cardiology Review of Systems Respiratory: shortness of breath Cardiovascular: chest pain All Other Systems Reviewed Negative Unless Noted: Yes [id number] [id number] Patient Social History Smoking Status: Current Everyday Smoker Alcohol Use?: No Pt feels they are or have been: No Tobacco type used: Cigarettes Past Medical History PMH As described under Assessment. Allergies and Home Medications Allergies Coded Allergies: Penicillins (Verified Allergy, Unknown, 06/03/20) Patient Home Medication List Home Medication List Reviewed: Yes Aspirin (Aspirin) 81 Mg Tab.chew, 81 MG PO DAILY, (Reported) Entered as Reported by: TAVON GONZALEZ on 01/02/23 0817 Last Action: Reviewed Colchicine (Colchicine) 0.6 Mg Capsule, 0.6 MG PO BID Prescribed by: ANDRESSA GARCIA on 01/02/23 110 Ibuprofen (Ibuprofen) 600 Mg Tablet, 600 MG PO TID Prescribed by: ANDRESSA GARCIA on 01/02/23 110 Metoprolol Succinate (Toprol Xl) 50 Mg Tab.er.24h, 50 MG PO BID, (Reported) Entered as Reported by: TAVON GONZALEZ on 01/02/23 0813 Last Action: Reviewed Pantoprazole Sodium (Protonix) 40 Mg Tablet.dr, 40 MG PO DAILY Prescribed by: ANDRESSA GARCIA on 01/02/23 1103 Discontinued Medications Cephalexin (Cephalexin) 500 Mg Tablet, 500 MG PO QID Discontinued Reason: No Longer Taking Prescribed by: SUNNY GRESHAM on 10/31/19 1403 Last Action: Discontinued Hydrocodone/Acetaminophen (Hydrocodone/Acetaminophen 5 MG/325 MG TAB) 1 Each Tablet, 1 TAB PO Q6H PRN for PAIN-MODERATE Discontinued Reason: No Longer Taking Prescribed by: SUNNY GRESHAM on 12/08/18 140 Last Action: Discontinued [Allopurionol] , (Reported) Discontinued Reason: No Longer Taking Entered as Reported by: CLARISSA GARCIA on 12/08/18 1232 Last Action: Discontinued [Toprol Xl] , (Reported) Discontinued Reason: Duplicate Order Entered as Reported by: CLARISSA GARCIA on 12/08/18 1230 Last Action: Discontinued Exam Vital Signs Vital Signs Date Time Temp Pulse Resp B/P (MAP) Pulse Ox O2 Delivery O2 Flow Rate FiO2 01/02/23 11:23 77 18 129/82 95 Room Air 01/02/23 08:17 36.4 01/02/23 04:43 21 Physical Exam General:Awake, alert and oriented. No acute distress. Well developed, hydrated and nourished. Appears stated age.Skin:Skin in warm, dry and intact without rashes or lesions. Appropriate color for ethnicity. Nailbeds pink with no cyanosis or clubbing.Head:The head is normocephalic and atraumatic without tenderness, visible or palpable masses, depressions, or scarring. Hair is of normal texture and evenly distributed.Eyes:Visual acuity is 20/20 without corrective lenses. Conjunctivae are clear without exudates or hemorrhage. Sclera is non-icteric. EOM are intact, PERRLA. Fundi appear normal including optic discs and vessels. No signs of nystagmus. Eyelids are normal in appearance without swelling or lesions.Ears:The external ear and ear canal are non-tender and without swelling. The canal is clear without discharge. The tympanic membrane is normal in appearance with normal landmarks and cone of light. Hearing is intact with good acuity to whispered voice.Nose:Nasal mucosa is pink and moist. The nasal septum is midline. Nares are patent bilaterally.Throat: Oral mucosa is pink and moist with good dentition. Tongue normal in appearance without lesions and with good symmetrical movement. No buccal nodules or lesions are noted. The pharynx is normal in appearance without tonsillar swelling or exudates.Neck:The neck is supple without adenopathy. Trachea is midline. Thyroid gland is normal without masses. Carotid pulse 2+ bilaterally without bruit. No JVD.Cardiac:The external chest is normal in appearance without lifts, heaves, or thrills. PMI is not visible and is palpated in the 5th intercostal space at the midclavicular line. Heart rate and rhythm are normal. No murmurs, gallops, or rubs are auscultated. S1 and S2 are heard and are of normal intensity.Respiratory:The chest wall is symmetric and without deformity. No signs of trauma. Chest wall is non-tender. No signs of respiratory distress. Lung sounds are clear in all lobes bilaterally without rales, ronchi, or wheezes. Resonance is normal upon percussion of all lung anne.Abdominal: Abdomen is soft, symmetric, and non-tender without distention. There are no visible lesions or scars. The aorta is midline without bruit or visible pulsation. Umbilicus is midline without herniation. Bowel sounds are present and normoactive in all four quadrants. No masses, hepatomegaly, or splenomegaly are noted. Labs Laboratory Tests Test 01/02/23 02:40 01/02/23 06:37 Range/Units White Blood Count 11.0 4.3-11.0 10^3/uL Red Blood Count 5.15 4.30-5.52 10^6/uL Hemoglobin 15.4 13.3-17.7 g/dL Hematocrit 46 40-54 % Mean Corpuscular Volume 90 80-99 fL Mean Corpuscular Hemoglobin 30 25-34 pg Mean Corpuscular Hemoglobin Concent 33 32-36 g/dL Red Cell Distribution Width 13.5 10.0-14.5 % Platelet Count 252 130-400 10^3/uL Mean Platelet Volume 9.2 9.0-12.2 fL Immature Granulocyte % (Auto) 0 % Neutrophils (%) (Auto) 72 42-75 % Lymphocytes (%) (Auto) 21 12-44 % Monocytes (%) (Auto) 6 0-12 % Eosinophils (%) (Auto) 1 0-10 % Basophils (%) (Auto) 0 0-10 % Neutrophils # (Auto) 7.9 H 1.8-7.8 10^3/uL Lymphocytes # (Auto) 2.3 1.0-4.0 10^3/uL Monocytes # (Auto) 0.7 0.0-1.0 10^3/uL Eosinophils # (Auto) 0.1 0.0-0.3 10^3/uL Basophils # (Auto) 0.0 0.0-0.1 10^3/uL Immature Granulocyte # (Auto) 0.0 0.0-0.1 10^3/uL Sodium Level 137 135-145 MMOL/L Potassium Level 4.3 3.6-5.0 MMOL/L Chloride Level 104 98-107 MMOL/L Carbon Dioxide Level 22 21-32 MMOL/L Anion Gap 11 5-14 MMOL/L Blood Urea Nitrogen 24 H 7-18 MG/DL Creatinine 1.07 0.60-1.30 MG/DL Estimat Glomerular Filtration Rate 82 BUN/Creatinine Ratio 22 Glucose Level 111 H 70-105 MG/DL Calcium Level 10.4 H 8.5-10.1 MG/DL Corrected Calcium 10.2 H 8.5-10.1 MG/DL Magnesium Level 2.2 1.6-2.4 MG/DL Total Bilirubin 0.4 0.1-1.0 MG/DL Aspartate Amino Transf (AST/SGOT) 15 5-34 U/L Alanine Aminotransferase (ALT/SGPT) 21 0-55 U/L Alkaline Phosphatase 78 40-136 U/L Myoglobin 19.1 10.0-92.0 NG/ML Troponin I < 0.028 < 0.028 <0.028 NG/ML Total Protein 7.4 6.4-8.2 GM/DL Albumin 4.2 3.2-4.5 GM/DL Triglycerides Level 281 H <150 MG/DL Cholesterol Level 169 < 200 MG/DL LDL Cholesterol Direct 97 1-129 MG/DL VLDL Cholesterol 56 H 5-40 MG/DL HDL Cholesterol 30 L 40-60 MG/DL Radiology reviewed ECG Impression ECG Initial ECG Impression Date: Jan 02, 2023 Initial ECG Rhythm: S.Tach Initial ECG Intervals: Normal Initial ECG Impression: Nonspecific Changes Diagnosis/Problems Diagnosis/Problems (1) Pericarditis Status: Acute A/P-Cardiology Assessment/Admission Diagnosis Pericarditis Plan Colchicine 0.5 BID and Ibuprofen 600 mg q 8hrs for 2 weeks Outpatient should consider echocardiogram and stress testing given risk factors In 2 weeks colchicine can be discontinued and ibuprofen reduced stable for discharge today with outpatient follow up Problem Qualifiers (1) Pericarditis: Pericarditis type: idiopathic Chronicity: acute Qualified Codes: I30.0 - Acute nonspecific idiopathic pericarditis ALEJANDRO ESQUIVEL MD Jan 02, 2023 12:28
[2023-01-02] MEDS ORDERED: COLCHICINE 0.6 MG TABLET PO SCH (21:00)
== END 2023-01-02 11:23 | disposition home or self-care (01) ==
LOC: EDUNIT# 02:06 → ER 02:09 → ICU 04:03
PROVIDERS: ADMIT Internal Medicine; ATTEND Internal Medicine
DX: I30.0 Acute nonspecific idiopathic pericarditis (principal); I10 Essential (primary) hypertension; F17.210 Nicotine dependence, cigarettes, uncomplicated
CPT/HCPCS: 36415; 71045; 80053; 80061; 83735; 83874; 84484; 85025; 87081; 93005; 93041; 94760; G0378